=== PATIENT | female | born 1965 | race Caucasian/White ===

== ENCOUNTER 2018-09-29 22:45 | Emergency (ER) | payer MEDICAID ==
[2018-09-30] MEDS ORDERED: IBUPROFEN 600 MG TAB PO ONE (00:08)
--- NOTE | 2018-09-30 00:19 | EDPHY ---
H & P Stated Complaint: left foot pain- no injury Time Seen by Provider: 09/30/18 00:23 HPI/ROS: HPI CHIEF COMPLAINT: Left foot pain. HISTORY OF PRESENT ILLNESS: 53-year-old female history of stage IV breast cancer on chemotherapy, presents emergency room left lateral foot pain. The pain is located lateral left foot 5th metatarsal. Hurts worse when she walks. She states that she runs 45 min per day. She is unsure if she injured her left foot. The pain got worse around 8:00 p.m. Tonight it is now 12 30 in the morning. Denies any other area pain except left lateral foot pain 5th metatarsal. Past Medical History: Breast cancer stage IV. Past Surgical History: No recent surgery. Social History: Lives locally, denies daily use of drugs or tobacco. Did have 1 glass of wine this evening. Family History: Noncontributory ROS REVIEW OF SYSTEMS: 10 Systems were reviewed and negative with the exception of the elements mentioned in the history of present illness. Exam Constitutional triage nursing summary reviewed, vital signs reviewed, awake/ alert. Eyes normal conjunctivae and sclera, EOMI, PERRLA. HENT normal inspection, atraumatic, moist mucus membranes, no epistaxis, neck supple/ no meningismus, no raccoon eyes. Respiratory clear to auscultation bilaterally, normal breath sounds, no respiratory distress, no wheezing. Cardiovascular rate normal, regular rhythm, no murmur, no edema, distal pulses normal. Gastrointestinal soft, non-tender, no rebound, no guarding, normal bowel sounds, no distension, no pulsatile mass. Genitourinary no CVA tenderness. Musculoskeletal left foot: Neurovascular intact with good distal pulse, good cap refill, tender palpation over the 5th metatarsal. No bruising no swelling. no midline vertebral tenderness, full range of motion, no calf swelling, no tenderness of extremities, no meningismus, good pulses, neurovascularly intact. Skin pink, warm, & dry, no rash, skin atraumatic. Neurologic awake, alert and oriented x 3, AAOx3, moves all 4 extremities equally, motor intact, sensory intact, CN II-XII intact, normal cerebellar, normal vision, normal speech. Psychiatric normal mood/affect. Heme/Lymph/Immune no lymphadenopathy. Differential Diagnosis: Includes but is not limited to in a particular order left foot contusion, left foot sprain, left foot fracture, metatarsal fracture with soft tissue injury Medical Decision Making: The plan for this patient x-ray left foot, ibuprofen, ice pack. Re-evaluation: X-ray of the left foot reviewed this shows a fracture of the base of the 5th metatarsal. The patient be referred to Orthopedic foot surgery. Patient be splinted and crutches nonweightbearing. Recommend follows up with Podiatry. She is comfortable this plan understands. Source: Patient - Personal History Current Tetanus Diphtheria and Acellular Pertussis (TDAP): Yes - Medical/Surgical History Hx Asthma: No Hx Chronic Respiratory Disease: No Hx Diabetes: No Hx Cardiac Disease: No Hx Renal Disease: No Hx Cirrhosis: No Hx Alcoholism: No Hx HIV/AIDS: No Hx Splenectomy or Spleen Trauma: No Other PMH: pmh- breast CA. psh- R mastectomy - Social History Smoking Status: Former smoker Constitutional: Initial Vital Signs Temperature (C) 37.1 C 09/29/18 22:49 Heart Rate 72 09/29/18 22:49 Respiratory Rate 20 09/29/18 22:49 Blood Pressure 110/65 09/29/18 22:49 O2 Sat (%) 93 09/29/18 22:49 O2 Delivery Mode Room Air Allergies/Adverse Reactions: oxycodone [Oxycodone] Allergy (Verified 09/29/18 22:49) dairy Allergy (Uncoded 09/29/18 22:49) Home Medications: Medication Instructions Recorded LORazepam [Ativan (*)] 0.5 mg PO Q8H PRN 02/13/14 Loratadine [Claritin] 10 mg PO DAILY 02/13/14 Melatonin [Melatonin 3 MG (*)] 1.5 mg PO HS PRN 02/13/14 Meloxicam [Mobic 15 mg] 15 mg PO DAILY 02/13/14 Sertraline HCl [Zoloft 100mg (*)] 200 mg PO DAILY 02/13/14 traZODone [traZODONE 50MG (*)] 25 mg PO HS PRN 02/13/14 Hydrocodone/APAP 5/325 [[place] 1 - 2 tab PO Q4 PRN #40 tab 02/14/14 5/325 (*)] Hydroxychloroquine Sulfate 08/26/14 Lexapro 08/26/14 Tamoxifen Citrate 09/29/18 Medical Decision Making - Data Points Medications Given: Discontinued Medications Ibuprofen (Motrin) 600 mg PO EDNOW ONE Stop: 09/30/18 00:09 Last Admin: 09/30/18 00:13 Dose: 600 mg Departure - Departure Disposition: Home, Routine, Self-Care Clinical Impression: Foot fracture Condition: Good Instructions: Foot Fracture in Adults (ED) Additional Instructions: 1. Crutches 2. Elevation 3. Splint 4. Follow up with Surgery. Referrals: NONE *PRIMARY CARE P,. [Primary Care Provider] - As per Instructions Adalberto Nuñez DPM [Doctor of Podiatric Medicine] - As per Instructions
[2018-09-30 01:39] VITALS: BP 107/64
== END 2018-09-30 01:38 | disposition home or self-care (01) ==
PROC: 2W3RX1Z Immobilization of Left Lower Leg using Splint (ICD-10-PCS; principal; 2018-09-29)
DX: S92.355A Nondisplaced fracture of fifth metatarsal bone, left foot, initial encounter for closed fracture (principal); C50.919 Malignant neoplasm of unspecified site of unspecified female breast; X50.9XXA Other and unspecified overexertion or strenuous movements or postures, initial encounter; Y92.9 Unspecified place or not applicable; Y93.02 Activity, running; Y99.9 Unspecified external cause status

== ENCOUNTER → 2018-11-22 | Outpatient (CLI) | payer MEDICAID | LOC: FIMAGING 10:41 | PROVIDERS: ATTEND Nurse Practitioner | DX: Z12.31 Encounter for screening mammogram for malignant neoplasm of breast (principal); Z85.3 Personal history of malignant neoplasm of breast; Z90.11 Acquired absence of right breast and nipple; Z13.820 Encounter for screening for osteoporosis; M85.89 Other specified disorders of bone density and structure, multiple sites ==

== ENCOUNTER → 2019-01-06 | Outpatient (CLI) | payer MEDICAID | LOC: FIMAGING 16:02 ==